=== PATIENT | female | born 1990 | race Caucasian/White ===

== ENCOUNTER → 2017-06-22 | Outpatient (CLI) | payer OTHER ==
--- NOTE | ~2017-06-22 | US128 ---
[id number] [facility]. [facility] [address] [place], [place] [address] [id number] O MR#: [id number] Acc #: [id number] NAME: LALITA CURIEL : 1990 SEX: F STUDY DATE/TIME: 06/22/2017 14:06 UNIT: [facility] ROOM: STUDY DESCRIPTION: Thyroid Attending Physician: Tutu Hayes M.D. Referring Physician: Tutu Hayes M.D. Ordering Physician: Tutu Hayes M.D. Primary Care Physician: Tutu Hayes M.D. MEDICAL IMAGING REPORT This report is preliminary unless electronic signature is present EXAM Thyroid ultrasound, 06/22/2017. HISTORY Enlarged thyroid on physical examination 06/08/2017, thyromegaly. Hyperthyroidism. FINDINGS The right thyroid lobe measured 5.4 cm x 1.6 cm x 2 cm while the left lobe measured 4.9 cm x 1.3 cm x 1.9 cm. The isthmus measured 2 mm in the AP direction. Both thyroid lobes are heterogeneous in echotexture but no cystic or solid mass lesions were identified. Color-flow Doppler images show increased blood flow to both thyroid lobes. IMPRESSION Diffusely enlarged heterogeneous, hypervascular thyroid demonstrating no discrete cystic or solid nodules. Dictated by... Lionel Ly M.D. THIS IS AN ELECTRONICALLY VERIFIED REPORT Lionel Ly M.D. at 06/23/2017 2:37 PM JESÚS/suzanna TD: 06/22/2017 23:16 JOB #: [id number] MEDICAL IMAGING REPORT Page 1 of 1 COPY
== END | disposition home or self-care (01) ==
LOC: CGUS 13:30
DX: E01.0 Iodine-deficiency related diffuse (endemic) goiter (principal)
CPT/HCPCS: 76536